=== PATIENT | female | born 1960 ===

== ENCOUNTER 2018-01-03 07:24 | Day surgery (SDC) | payer OTHER | END 2018-01-03 17:20 | disposition home or self-care (01) | LOC: AMB-ENDOS 07:24 → CIR.AMB 13:00 → AMB-ENDOS 13:00 | DX: D13.1 Benign neoplasm of stomach (principal); K44.9 Diaphragmatic hernia without obstruction or gangrene; Z12.11 Encounter for screening for malignant neoplasm of colon ==

== ENCOUNTER 2018-05-02 07:35 | Day surgery (SDC) | payer OTHER | END 2018-05-02 13:00 | disposition home or self-care (01) | LOC: AMB-ENDOS 07:35 | DX: D12.4 Benign neoplasm of descending colon (principal); D12.5 Benign neoplasm of sigmoid colon; K64.1 Second degree hemorrhoids; Z12.11 Encounter for screening for malignant neoplasm of colon ==